=== PATIENT | female | born 1955 | race Caucasian/White ===

== ENCOUNTER → 2017-07-14 | Outpatient (CLI) | payer BC ==
--- NOTE | 2017-07-14 10:15 | WWHP ---
[facility] - HISTORY AND PHYSICAL DATE OF SERVICE: 07/14/2017 CHIEF COMPLAINT: The patient is here for her routine gynecologic exam and mammogram. HPI: This is a 62-year-old G4, P-1-0-3-1 with an LMP of 2008. The patient is without gynecologic complaints and denies any postmenopausal bleeding. PAST MEDICAL HISTORY: Elevated cholesterol. MEDICATIONS: 1. Lipitor 20 mg daily. 2. Vitamin D 1000 units daily. ALLERGIES: Allergies to AUGMENTIN. PAST SURGICAL HISTORY: Colonoscopies in 2007 and 2014, three laparoscopies between 1984 in 1989, right knee surgery 1978 and right foot surgery 1988. 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 SOCIAL HISTORY: She denies tobacco and drug use and has about 2 alcohol containing drinks per month. She has been since 2013 and this is her third marriage. 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 FAMILY HISTORY: Mother had colon cancer and diabetes. Father had heart disease. Sister had precancerous colon polyps. Maternal aunt had breast cancer. REVIEW OF SYSTEMS: Weight has been stable. She denies respiratory, cardiac or GI problems. PHYSICAL EXAM: Blood pressure 128/76, height 5 feet 2 inches, weight 163 pounds, BMI 30, temperature 98.1, pulse 94. This is a well-developed, well-nourished, white female, who is alert and oriented x3, in no acute distress. HEENT is within normal limits. NECK: Supple without mass or thyromegaly. CHEST AND LUNGS: Clear to auscultation. HEART: Regular rate and rhythm. Breasts are without mass or discharge. Axillary exam is negative for adenopathy. BACK: Negative for CVA tenderness. ABDOMEN: Soft, nontender, without palpable masses. PELVIC EXAM: Normal external genitalia with minimal atrophy. Cervix and vagina reveal minimal atrophy without lesions. There is no evidence of prolapse. The uterus is mid position, nongravid size and nontender. There are no palpable adnexal masses or tenderness. Rectovaginal exam is negative for mass or tenderness and is negative for occult blood. EXTREMITIES: Nontender. IMPRESSION: A 62-year-old menopausal female with normal gynecologic exam. PLAN: 1. Pap smear was performed. 2. Self-breast examination was discussed. 3. Mammogram will be done today. 4. Osteoporosis prevention was discussed. I have recommended bone density screening. She does have an order slip for this. 5. She will return in one year. MMODL / IJN: [id number] /
--- NOTE | 2017-07-15 10:51 | MM ---
Reason for exam: screening (asymptomatic). Last mammogram was performed 1 year and 1 month ago. History: Patient is postmenopausal. Family history of breast cancer in maternal aunt. Physical Findings: A clinical breast exam by your physician is recommended on an annual basis and results should be correlated with mammographic findings. MG 3D Screening Mammo W/Cad Bilateral CC and MLO view(s) were taken. Prior study comparison: June 10, 2016, bilateral MG 3d screening mammo w/cad. June 05, 2015, bilateral MG 3d screening mammo w/cad. There are scattered fibroglandular densities. No significant changes when compared with prior studies. ASSESSMENT: Benign, BI-RAD 2 RECOMMENDATION: Routine screening mammogram of both breasts in 1 year.
== END | disposition home or self-care (01) ==
LOC: WWCWWP 07:58
PROVIDERS: ATTEND Obstetrics & Gynecology
DX: Z12.31 Encounter for screening mammogram for malignant neoplasm of breast (principal)
CPT/HCPCS: 77063; 77067

== ENCOUNTER → 2018-03-19 | Outpatient (CLI) | payer OTHER ==
[2018-03-19 07:46] LABS: Basophils % (A) 0 %; Eosinophils # (A) 0.1 k/uL (0-0.7); Eosinophils % (A) 2 %; HCT 43.8 % (34.0-46.0); HGB 14.1 gm/dL (11.4-16.0); Lymphocytes # (A) 1.1 k/uL (1.0-4.8); Lymphocytes % (A) 28 %; MCH 30.3 pg (25.0-35.0); MCHC 32.3 g/dL (31.0-37.0); MCV 93.8 fL (80.0-100.0); Mean Platelet Volume 7.5; Monocytes # (A) 0.3 k/uL (0-1.0); Monocytes % (A) 9 %; Neutrophils # (A) 2.2 k/uL (1.3-7.7); Neutrophils % (A) 58 %; Platelet Count 156 k/uL (150-450); RBC 4.67 m/uL (3.80-5.40); RDW 12.7 % (11.5-15.5); WBC 3.8 k/uL (3.8-10.6)
[2018-03-19 08:05] LABS: ALT 27 U/L (9-52); AST 28 U/L (14-36); Albumin 4.1 g/dL (3.5-5.0); Alkaline Phosphatase 87 U/L (38-126); Anion Gap 8 mmol/L; Blood Urea Nitrogen 19 mg/dL (7-17); Calcium 9.2 mg/dL (8.4-10.2); Carbon Dioxide 26 mmol/L (22-30); Chloride 108 mmol/L (98-107); Cholesterol 280 mg/dL (<200); Glucose 85 mg/dL (74-99); HDL Cholesterol 43 mg/dL (40-60); LDL Cholesterol,Calculated 210 mg/dL (0-99); Potassium 4.6 mmol/L (3.5-5.1); Sodium 142 mmol/L (137-145); Total Bilirubin 0.6 mg/dL (0.2-1.3); Total Protein 7.7 g/dL (6.3-8.2); Triglycerides 137 mg/dL (<150)
[2018-03-19 08:19] LABS: T4, Free (Free Thyroxine) 1.11 ng/dL (0.78-2.19)
== END ==
LOC: LABWHC1 06:55
PROVIDERS: ATTEND Family Medicine
DX: Z00.00 Encounter for general adult medical examination without abnormal findings (principal); E78.5 Hyperlipidemia, unspecified; Z79.899 Other long term (current) drug therapy
CPT/HCPCS: 36415; 80053; 80061; 84439; 84443; 85025

== ENCOUNTER → 2019-01-10 | Outpatient (CLI) | payer OTHER ==
[2019-01-10 07:42] LABS: Basophils % (A) 1 %; Eosinophils # (A) 0.1 k/uL (0-0.7); Eosinophils % (A) 2 %; HCT 42.2 % (34.0-46.0); HGB 13.9 gm/dL (11.4-16.0); Lymphocytes # (A) 1.1 k/uL (1.0-4.8); Lymphocytes % (A) 28 %; MCH 29.8 pg (25.0-35.0); MCV 90.3 fL (80.0-100.0); Mean Platelet Volume 8.1; Monocytes # (A) 0.3 k/uL (0-1.0); Monocytes % (A) 8 %; Neutrophils # (A) 2.2 k/uL (1.3-7.7); Neutrophils % (A) 58 %; Platelet Count 166 k/uL (150-450); RBC 4.67 m/uL (3.80-5.40); RDW 13.7 % (11.5-15.5); WBC 3.8 k/uL (3.8-10.6)
[2019-01-10 12:26] LABS: African American GFR (CKD) 79.4 (60.0-200.0); Albumin 4.2 g/dL (3.80-4.90); Albumin/Globulin Ratio 1.62 (1.60-3.17); Anion Gap 6.4 mmol/L (4.00-12.00); BUN/Creat Ratio 24.44 Ratio (12.00-20.00); Calcium 9.2 mg/dL (8.7-10.3); Carbon Dioxide 29.6 mmol/L (21.6-31.8); Globulin 2.6 g/dL (1.6-3.3); LDL Cholesterol,Calculated 159.2 mg/dL (0.0-131.0); Potassium 5.3 mmol/L (3.5-5.5); Total Bilirubin 0.5 mg/dL (0.2-1.2); Total Protein 6.8 g/dL (6.2-8.2); VLDL Calculation 23.8 mg/dL (5.00-40.00)
[2019-01-10 15:03] LABS: Hepatitis C IgG Antibody Non-Reactive (Non-Reactive)
== END | disposition home or self-care (01) ==
LOC: LABWHC1 06:32
PROVIDERS: ATTEND Family Medicine
DX: E78.2 Mixed hyperlipidemia (principal); Z11.59 Encounter for screening for other viral diseases
CPT/HCPCS: 36415; 80053; 80061; 82550; 85025; 86141; 86803

== ENCOUNTER → 2020-03-13 | Outpatient (CLI) | payer OTHER ==
[2020-03-13 11:31] VITALS: BP 130/81; PULSE 79; RESP 18; TEMP 98.1
--- NOTE | 2020-03-13 12:02 | P.HPOB ---
History of Present Illness H&P Date: 03/13/20 Chief Complaint: The patient is here for her routine gynecologic exam and ma mmogram. This is a 64-year-old with an LMP of 2008. The patient is without gynecologic complaints and denies any postmenopausal bleeding. Review of Systems The patient's weight has been stable over the last 2 years. She is trying to lose weight with a Mediterranean diet. She denies respiratory, cardiac, or G.I. problems. 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 History of Any Multi-Drug Resistant Organisms: None Reported Past Surgical History: Orthopedic Surgery Additional Past Surgical History / Comment(s): 3 laparoscopies, right knee surgery and right foot surgery. Colonoscopy 2014(next after 5yr) Past Psychological History: No Psychological Hx Reported Smoking Status: Former smoker Past Alcohol Use History: Occasional (2 per month) Past Drug Use History: None Reported Additional History: She has been since 2013 and this is her third marriage. 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 - Past Family History Mother Family Medical History: Cancer, Diabetes Mellitus Additional Family Medical History / Comment(s): Colon cancer. Maternal aunt had breast cancer. Father Additional Family Medical History / Comment(s): Heart disease. Sister(s) Additional Family Medical History / Comment(s): Precancerous colon polyps. Medications and Allergies Home Medications Medication Instructions Recorded Confirmed Type Atorvastatin Calcium [Lipitor] 20 mg PO HS 03/13/20 03/13/20 History Allergies Allergy/AdvReac Type Severity Reaction Status Date / Time amoxicillin [From Augmentin] Allergy Vomiting Unverified 03/13/20 11:24 clavulanic acid Allergy Vomiting Unverified 03/13/20 11:24 [From Augmentin] Exam Vital Signs Temp Pulse Resp BP Pulse Ox 03/13/20 11:24 98.1 F 79 18 130/81 96 Intake and Output 03/12/20 03/13/20 03/13/20 22:59 06:59 14:59 Other: Weight 72.575 kg Height 5 feet 2 inches, weight 160 pounds, BMI 29.3. This is a well-developed well-nourished white female who is alert and oriented times 3 in no acute distress. HEENT: Within normal limits. NECK: Supple without mass or thyromegaly. CHEST AND LUNGS: Clear to auscultation. HEART: Regular rate and rhythm. BREASTS: Are without mass or discharge. AXILLARY EXAM: Negative for adenopathy. BACK: Negative for CVA tenderness. ABDOMEN: Soft, nontender, without palpable masses. PELVIC EXAM: Normal external genitalia with mild atrophy. Cervix and vagina appear normal mild atrophy. There is no unusual discharge. There is no evidence of prolapse. The uterus is midposition, nongravid size and nontender. There are no palpable adnexal masses or tenderness. RECTAL EXAM: Rectovaginal exam is negative for mass or tenderness and is negative for occult blood. EXTREMITIES: Nontender. IMPRESSION: 1. 64-year-old menopausal female with normal gynecologic exam. PLAN: 1. Pap smear was performed. 2. Self breast awareness was discussed with the patient. 3. Screening mammogram will be done today. 4. Osteoporosis prevention was discussed. I have stressed the importance of adequate calcium, vitamin D and regular exercise. Recommended amounts of calcium and vitamin D were also discussed. I have recommended a baseline screening bone density test since she has never had this done. The order slip was given to the patient for this. 5. She states she is due for her colonoscopy and will ask her PCP to help her to arrange this. 6. She was advised to return in one year for her annual well woman exam.
--- NOTE | 2020-03-15 14:24 | MM ---
Reason for exam: screening (asymptomatic). Last mammogram was performed 2 years and 8 months ago. History: Patient is postmenopausal. Family history of breast cancer in maternal aunt. Physical Findings: A clinical breast exam by your physician is recommended on an annual basis and results should be correlated with mammographic findings. MG 3D Screening Mammo W/Cad Bilateral CC and MLO view(s) were taken. Prior study comparison: July 14, 2017, bilateral MG 3d screening mammo w/cad. June 10, 2016, bilateral MG 3d screening mammo w/cad. There are scattered fibroglandular densities. Focal asymmetry left CC, not clearly evident on tomosynthesis. This finding is changed when compared with previous exams. ASSESSMENT: Incomplete: need additional imaging evaluation, BI-RAD 0 RECOMMENDATION: Special view mammogram of the left breast. If lesion persists on supplemental views, image directed ultrasound is recommended. [facility] will attempt to contact patient to return for supplemental views and ultrasound if indicated.
== END | disposition home or self-care (01) ==
LOC: WWCWWP 11:16
PROVIDERS: ATTEND Obstetrics & Gynecology
DX: Z12.31 Encounter for screening mammogram for malignant neoplasm of breast (principal)
CPT/HCPCS: 77063; 77067

== ENCOUNTER → 2020-04-02 | Outpatient (CLI) | payer OTHER ==
--- NOTE | 2020-04-03 07:51 | MM ---
Reason for exam: additional evaluation requested from abnormal screening. Last mammogram was performed 1 month ago. History: Patient is postmenopausal. Family history of breast cancer in maternal aunt. Physical Findings: Nurse Summary: 1cm nodule in the right breast at 12 o'clock (nurse mj). MG 3D Work Up W/Cad LT Spot compression CC and LM view(s) were taken of the left breast. Prior study comparison: March 13, 2020, bilateral MG 3d screening mammo w/cad. July 14, 2017, bilateral MG 3d screening mammo w/cad. Finding: There is a 5 mm equal density (isodense), irregular mass in the posterior, central position of the left breast. These results were verbally communicated with the patient and result sheet given to the patient on 04/02/20. ASSESSMENT: Incomplete: need additional imaging evaluation, BI-RAD 0 RECOMMENDATION: Ultrasound of both breasts.
--- NOTE | 2020-04-03 07:58 | USB ---
Reason for exam: additional evaluation requested from abnormal screening. History: Patient is postmenopausal. Family history of breast cancer in maternal aunt. US Breast Workup Limited LUCA Left limited breast ultrasound including focal area of concern, retroareolar and axilla demonstrates no cystic or solid lesion seen. Left complete breast ultrasound includes all four quadrants, the retroareolar region and axilla. Finding demonstrates a 4 x 3 x 3mm oval, cystic lesion at 12 o'clock. These results were verbally communicated with the patient and result sheet given to the patient on 04/02/20. ASSESSMENT: Suspicious, BI-RAD 4 RECOMMENDATION: Stereotactic core biopsy of the left breast. Called Dr. Browne's office with mammographic findings and has scheduled an appointment for the patient for 05/02/20 at 4:[address] Aleman. Biopsy scheduled for 04/11/20 at 8:00. PRELIMINARY REPORT CALLED AND FAXED TO DR. ALEMAN ON 04/03/20.
== END | disposition home or self-care (01) ==
LOC: RADMAMWWP 13:33
PROVIDERS: ATTEND Obstetrics & Gynecology
DX: R92.8 Other abnormal and inconclusive findings on diagnostic imaging of breast (principal)
CPT/HCPCS: 77061; 77065

== ENCOUNTER → 2020-04-11 | Day surgery (SDC) | payer OTHER ==
[2020-04-11 07:25] VITALS: RESP 16
[2020-04-11 09:07] VITALS: BP 125/78; PULSE 84; TEMP 98.2
--- NOTE | 2020-04-11 09:46 | MM ---
Stereotactic Mammotome core biopsy left breast. HISTORY: Abnormal mammogram The density in question within the left breast were targeted by the undersigned. Procedure was performed by the undersigned. Informed consent was obtained and all of the patients questions were answered. The standard sterile technique was utilized and appropriate local anesthesia was obtained with 1% lidocaine. Mammotome probe was advanced and multiple core samples were obtained and sent to pathology for interpretation. Microclip marker was deployed at the site of biopsy. Post procedural mammogram demonstrates appropriate deployment of radiopaque clip marker. The patient tolerated the procedure well and left the department in stable condition. Pathology results are pending. IMPRESSION: Successful stereotactic core biopsy left breast with pathology results pending. Pathology Results: Benign LEFT BREAST, NEEDLE CORE BIOPSIES: Fibrocystic spectrum lesions with duct hyperplasia and squamous metaplasia. Negative for features diagnostic of neoplasm. Recommendation Follow up mammogram of the left breast in 6 months. NOAM
== END ==
LOC: RADMAMWWP 07:01
PROVIDERS: ATTEND Surgery
DX: N60.12 Diffuse cystic mastopathy of left breast (principal); Z88.0 Allergy status to penicillin; Z80.9 Family history of malignant neoplasm, unspecified
CPT/HCPCS: 88305; 19081; A4648; J2001

== ENCOUNTER → 2020-11-07 | Outpatient (CLI) | payer OTHER ==
--- NOTE | 2020-11-07 10:30 | MM ---
Reason for exam: follow-up at short interval from prior study. Last mammogram was performed 7 months ago. History: Patient is postmenopausal. Family history of breast cancer in maternal aunt. Benign MG stereo VAD BX LT of the left breast, April 11, 2020. Physical Findings: Nurse did not find any significant physical abnormalities on exam. MG 3D Diag Mammo W/Cad LT CC and MLO view(s) were taken of the left breast. Prior study comparison: April 02, 2020, left breast MG 3d work up w/cad LT. March 13, 2020, bilateral MG 3d screening mammo w/cad. The breast tissue is heterogeneously dense. This may lower the sensitivity of mammography. Previous mammotome biopsy in the left breast. There is no discrete abnormality including area of concern. These results were verbally communicated with the patient and result sheet given to the patient on 11/07/20. ASSESSMENT: Benign, BI-RAD 2 RECOMMENDATION: Return to routine screening mammogram schedule for both breasts.
== END | disposition home or self-care (01) ==
LOC: RADMAMWWP 09:43
PROVIDERS: ATTEND Surgery
DX: R92.2 Inconclusive mammogram (principal); Z80.3 Family history of malignant neoplasm of breast; Z78.0 Asymptomatic menopausal state
CPT/HCPCS: 77061; 77065

== ENCOUNTER → 2021-12-17 | Outpatient (CLI) | payer OTHER ==
[2021-12-17 14:21] VITALS: BP 139/70; PULSE 84; RESP 17; TEMP 98.5
--- NOTE | 2021-12-17 14:57 | P.HPOB ---
History of Present Illness H&P Date: 12/17/21 Chief Complaint: The patient is here for her routine gynecologic exam and ma mmogram. This is a 66-year-old 031 with an LMP of 2008. The patient is without gynecologic complaints. Review of Systems The patient's weight has been stable over the last year. She denies respiratory, cardiac, or G.I. problems. 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 History of Any Multi-Drug Resistant Organisms: None Reported Past Surgical History: Orthopedic Surgery Additional Past Surgical History / Comment(s): 3 laparoscopies, right knee surgery and right foot surgery. Colonoscopy 2014(next after 5yr) Past Anesthesia/Blood Transfusion Reactions: No Reported Reaction Past Psychological History: No Psychological Hx Reported Smoking Status: Former smoker Past Alcohol Use History: Occasional (1 per month) Additional Past Alcohol Use History / Comment(s): Smoked only as a teenager. Past Drug Use History: None Reported Additional History: She has been since 2013 and this is her third marriage. 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 - Past Family History Mother Family Medical History: Cancer, Diabetes Mellitus Additional Family Medical History / Comment(s): Colon cancer. Maternal aunt had breast cancer. Father Additional Family Medical History / Comment(s): Heart disease. Sister(s) Additional Family Medical History / Comment(s): Precancerous colon polyps. Medications and Allergies Home Medications Medication Instructions Recorded Confirmed Type Atorvastatin Calcium [Lipitor] 20 mg PO HS 03/13/20 12/17/21 History Allergies Allergy/AdvReac Type Severity Reaction Status Date / Time amoxicillin [From Augmentin] Allergy Vomiting Verified 12/17/21 14:16 clavulanic acid Allergy Vomiting Verified 12/17/21 14:16 [From Augmentin] Exam Vital Signs Temp Pulse Resp BP Pulse Ox 12/17/21 14:19 98.5 F 84 17 139/70 97 Intake and Output 12/16/21 12/17/21 12/17/21 22:59 06:59 14:59 Other: Weight 72.121 kg Height 5 feet 2 inches, weight 159 pounds, BMI 29.1. This is a well-developed well-nourished white female who is alert and oriented times 3 in no acute distress. HEENT: Within normal limits. NECK: Supple without mass or thyromegaly. CHEST AND LUNGS: Clear to auscultation. HEART: Regular rate and rhythm. BREASTS: Are without mass or discharge. AXILLARY EXAM: Negative for adenopathy. BACK: Negative for CVA tenderness. ABDOMEN: Soft, nontender, without palpable masses. PELVIC EXAM: Normal external genitalia if mild atrophy. Cervix and vagina appear normal with mild atrophy. There is no unusual discharge. There is a grade 1-2 uterine prolapse and grade 1-2 cystocele noted. The uterus is midposition, nongravid size and nontender. There are no palpable adnexal masses or tenderness. RECTAL EXAM: Rectovaginal exam is negative for mass or tenderness and is negative for occult blood. EXTREMITIES: Nontender. IMPRESSION: 1. 66-year-old menopausal female with grade 1-2 uterine prolapse and grade 1-2 cystocele. These are asymptomatic. PLAN: 1. Pap smear was deferred since she had a normal one on 03/13/2020. This will be repeated in 1 year and if that is negative, Pap smears will be discontinued. 2. Self breast awareness was discussed with the patient. We have also discussed symptoms associated with inflammatory breast cancer. 3. Screening mammogram will be done today. 4. Osteoporosis prevention was discussed. I have recommended baseline bone density testing. She states she has an order slip for this. 5. She is due for a colonoscopy and plans to see Dr. Aleman for this. 6. She has completed her Covid vaccination series and did receive a booster. 7. We have discussed the slight uterine prolapse and cystocele. I have recommended that she avoid heavy repetitive lifting and avoid holding urine for excessive amounts of time. 8. She was advised to return in one year for her annual well woman exam and as needed.
--- NOTE | 2021-12-18 08:44 | MM ---
Reason for Exam: Screening (asymptomatic). Last mammogram was performed 1 year(s) and 9 month(s) ago. Patient History: Menarche at age 13. First Full-Term at age 30. Postmenopausal. 04/11/2020, Benign Core Biopsy on the left side. Maternal aunt had breast cancer, age 60. Risk Values: Taryn 5 year model risk: 2.2%. NCI Lifetime model risk: 8.2%. Prior Study Comparison: 03/13/2020 Bilateral Screening Mammogram, [facility]. 04/02/2020 Left Diagnostic Mammogram, [facility]. 11/07/2020 Left Diagnostic Mammogram, [facility]. Tissue Density: There are scattered fibroglandular densities. Findings: Analyzed By CAD. No suspicious groups of microcalcifications, spiculated or lobular masses, architectural distortion or other secondary signs of malignancy are mammographically apparent. Overall Assessment: Benign, BI-RAD 2 Management: Screening Mammogram of both breasts in 1 year. A negative mammogram report should not preclude additional follow up of suspicious palpable abnormalities. Patient should continue monthly self breast exam. A clinical breast exam by your physician is recommended on an annual basis and results should be correlated with mammographic findings. Electronically signed and approved by: Corwin Gutierrez D.O. Radiologis
== END ==
LOC: WWCWWP 14:14
PROVIDERS: ATTEND Obstetrics & Gynecology
DX: Z12.31 Encounter for screening mammogram for malignant neoplasm of breast (principal); Z01.419 Encounter for gynecological examination (general) (routine) without abnormal findings; E78.5 Hyperlipidemia, unspecified; Z87.891 Personal history of nicotine dependence; Z88.1 Allergy status to other antibiotic agents; Z78.0 Asymptomatic menopausal state; Z80.3 Family history of malignant neoplasm of breast
CPT/HCPCS: 77063; 77067

== ENCOUNTER → 2022-12-03 | Outpatient (CLI) | payer BC ==
--- NOTE | 2022-12-03 08:00 | BD ---
EXAMINATION TYPE: Axial Bone Density DATE OF EXAM: 12/03/2022 CLINICAL HISTORY: 67 years old Female. ICD-10 CODE: Z78.0 Height: 61.7 in Weight: 152 lbs RISK FACTORS HISTORY OF: Active: yes Diet low in dairy products/other sources of calcium: yes Postmenopausal woman: age 53 MEDICATIONS: none EXAM MEASUREMENTS: Bone mineral densitometry was performed using the [employer] System. Bone mineral density as measured about the Lumbar spine is: ----- L1-L4(G/cm2): 0.952 T Score Values are as follows: ----- L1: -3.3 ----- L2: -2.6 ----- L3: -0.6 ----- L4: -1.7 ----- L1-L4: -1.9 Z Score Values are as follows: ----- L1: -1.8 ----- L2: -1.2 ----- L3: 0.9 ----- L4: -0.2 ----- L1-L4: -0.4 Bone mineral density baseline Bone mineral density about the R hip (g/cm2): 0.859 Bone mineral density about the L hip (g/cm2): 0.830 T Score values are as follows: -----R Neck: -1.6 -----L Neck: -1.6 -----R Total: -1.2 -----L Total: -1.4 Z Score values are as follows: -----R Neck: -0.2 -----L Neck: -0.2 -----R Total: -0.2 -----L Total: 0.0 Bone mineral density baseline FRAX%s: The graph provided illustrates a 9.6% chance for a major osteoporotic fx and a 1.2% chance fo r the hips probability for fx in 10 years time. IMPRESSION: Osteopenia (T Score between -2.5 and -1). There is slightly increased risk of fracture and the patient may be considered for treatment. Re-Screen 2-5 years. NOTE: T-SCORE=SD OF THE YOUNG ADULT MEAN.
== END | disposition home or self-care (01) ==
LOC: RADBDWWP 07:17
PROVIDERS: ATTEND Family Medicine
DX: M85.89 Other specified disorders of bone density and structure, multiple sites (principal); Z78.0 Asymptomatic menopausal state
CPT/HCPCS: 77080

== ENCOUNTER → 2023-03-13 | Outpatient (CLI) | payer MEDICARE ==
[2023-03-13 16:09] LABS: Chol/HDL Ratio 3.29 Ratio; Creatine Kinase 65 U/L (26-186); LDL Cholesterol,Calculated 95.6 mg/dL (0.0-131.0)
[2023-03-13 16:10] LABS: ALT 24 U/L (8-44); AST 28 U/L (13-35)
[2023-03-13 21:06] LABS: Basophils # (A) 0.04 X 10*3/uL (0.00-0.10); Basophils % (A) 0.9 %; Eosinophils # (A) 0.08 X 10*3/uL (0.04-0.35); Eosinophils % (A) 1.7 %; HCT 43.8 % (37.2-46.3); HGB 14.5 d/dL (12.0-15.0); Lymphocytes # (A) 1.27 X 10*3/uL (0.90-5.00); Lymphocytes % (A) 27.1 %; MCH 30.9 pg (27.0-32.0); MCHC 33.1 d/dL (32.0-37.0); MCV 93.4 FL (80.0-97.0); Mean Platelet Volume 12.3 FL (9.5-12.2); Monocytes % (A) 10.7 %; NRBC Per 100 WBC 0 X 10*3/uL (0.00-0.01); Neutrophils # (A) 2.78 X 10*3/uL (1.80-7.70); Neutrophils % (A) 59.2 %; Platelet Count 170 X 10*3/uL (140-440); RBC 4.69 X 10*6/uL (4.10-5.20); RDW 12.6 % (11.5-14.5); WBC 4.69 X 10*3/uL (4.50-10.00)
== END | disposition home or self-care (01) ==
LOC: LABWHC1 09:33
PROVIDERS: ATTEND Family Medicine
DX: E78.00 Pure hypercholesterolemia, unspecified (principal); D72.819 Decreased white blood cell count, unspecified
CPT/HCPCS: 36415; 80061; 82550; 84450; 84460; 85025

== ENCOUNTER → 2023-07-21 | Outpatient (CLI) | payer MEDICARE ==
[2023-07-21 12:56] VITALS: BP 144/76; PULSE 90; RESP 17; TEMP 98.4
--- NOTE | 2023-07-21 13:24 | P.HPOB ---
History of Present Illness H&P Date: 07/21/23 Chief Complaint: The patient is here for her routine gynecologic exam and ma mmogram. This is a 68-year-old 031 with an LMP of 2008. The patient is without gynecologic complaints. She denies any significant symptoms from her vaginal prolapse. She has a known small cystocele and uterine prolapse. Review of Systems The patient has gained pounds over the last year. She denies respiratory, cardiac, or G.I. problems. She had a bout of colitis about 2 months ago and she now avoids certain foods. 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 History of Any Multi-Drug Resistant Organisms: None Reported Past Surgical History: Orthopedic Surgery Additional Past Surgical History / Comment(s): 3 laparoscopies, right knee surgery and right foot surgery. Colonoscopy 2014(next after 5yr) Past Anesthesia/Blood Transfusion Reactions: No Reported Reaction Past Psychological History: No Psychological Hx Reported (PHQ-2 questionaire was given and she scores 0. This is a negative screen for depression.) Smoking Status: Former smoker Past Alcohol Use History: Occasional (About 1 drink per month.) Additional Past Alcohol Use History / Comment(s): Smoked only as a teenager. Past Drug Use History: None Reported Additional History: She has been since 2013 and this is her third marriage. 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 - Past Family History Mother Family Medical History: Cancer, Diabetes Mellitus Additional Family Medical History / Comment(s): Colon cancer. Maternal aunt had breast cancer. Father Additional Family Medical History / Comment(s): Heart disease. Sister(s) Additional Family Medical History / Comment(s): Precancerous colon polyps. Medications and Allergies Home Medications Medication Instructions Recorded Confirmed Type Simvastatin [Zocor] 10 mg PO DAILY 07/21/23 07/21/23 History Allergies Allergy/AdvReac Type Severity Reaction Status Date / Time amoxicillin [From Augmentin] Allergy Vomiting Verified 07/21/23 12:41 clavulanic acid Allergy Vomiting Verified 07/21/23 12:41 [From Augmentin] Exam Vital Signs Temp Pulse Resp BP Pulse Ox 07/21/23 12:43 98.4 F 90 17 144/76 99 Intake and Output 07/20/23 07/21/23 07/21/23 22:59 06:59 14:59 Other: Weight 73.482 kg Height 5 feet 2 inches, weight 162 pounds, BMI 29.6. This is a well-developed well-nourished white female who is alert and oriented times 3 in no acute distress. HEENT: Within normal limits. NECK: Supple without mass or thyromegaly. CHEST AND LUNGS: Clear to auscultation. HEART: Regular rate and rhythm. BREASTS: Are without mass or discharge. AXILLARY EXAM: Negative for adenopathy. BACK: Negative for CVA tenderness. ABDOMEN: Soft, nontender, without palpable masses. PELVIC EXAM: Normal external genitalia with mild atrophy. Cervix and vagina appear normal with mild atrophy. There is no unusual discharge. There is a grade 2 cystocele with a grade 1-2 uterine prolapse and grade 1-2 rectocele. The vaginal mucosa is without ulceration, excoriation, or thickening. The uterus is midposition, nongravid size and nontender. There are no palpable adnexal masses or tenderness. RECTAL EXAM: Rectovaginal exam is negative for mass or tenderness and is negative for occult blood. EXTREMITIES: Nontender. IMPRESSION: 1. 68-year-old menopausal female with asymptomatic grade 2 cystocele, grade 1-2 uterine prolapse, and grade 1-2 rectocele. 2. History of osteopenia. PLAN: 1. Pap smear was performed. If this is negative for all plan on discontinuing Pap smears. 2. Self breast awareness was discussed with the patient. We have also discussed symptoms associated with inflammatory breast cancer. 3. Screening mammogram will be done today. 4. PHQ-2 questionaire was given and she scores 0. This is a negative screen for depression. 5. Osteoporosis prevention was discussed. I have stressed the importance of adequate calcium, vitamin D and regular exercise. Recommended amounts of calcium and vitamin D were also discussed. Her last bone density test was done on 12/03/2022. We will plan on repeating the bone density test in about 2 years. 6. She is scheduled for a colonoscopy on 09/09/[address] Neptali Aleman. 7. We will continue conservative management for her pelvic relaxation. She was instructed to call if she is having any significant symptoms related to this. 8. She was advised to return in one year for her annual well woman exam and as needed.
--- NOTE | 2023-07-22 09:27 | MM ---
Reason for Exam: Screening (asymptomatic). Last mammogram was performed 1 year(s) and 7 month(s) ago. Patient History: Menarche at age 13. First Full-Term at age 30. Postmenopausal. 04/11/2020, Benign Core Biopsy on the left side. Maternal aunt had breast cancer, age 60. Risk Values: Taryn 5 year model risk: 2.2%. NCI Lifetime model risk: 7.6%. Prior Study Comparison: 06/10/2016 Bilateral Screening Mammogram, [facility]. 07/14/2017 Bilateral Screening Mammogram, [facility] 03/13/2020 Bilateral Screening Mammogram, [facility]. 04/02/2020 Left Diagnostic Mammogram, [facility]. 11/07/2020 Left Diagnostic Mammogram, [facility]. 12/17/2021 Bilateral MG 3D screening mammo w/cad, [facility]. Tissue Density: The breast tissue is almost entirely fat. Findings: Analyzed By CAD. Left breast biopsy clip. There is no suspicious group of microcalcifications or new suspicious mass. Benign-appearing calcifications bilaterally. Overall Assessment: Benign, BI-RAD 2 Management: Screening Mammogram of both breasts in [address] [facility] will attempt to contact patient to return for supplemental views and ultrasound if indicated. Patient should continue monthly self-breast exams. A clinical breast exam by your physician is recommended on an annual basis. This exam should not preclude additional follow-up of suspicious palpable abnormalities. Note on Taryn scores and lifetime risk: 1. A Taryn score greater than 3% is considered moderate risk. If this is the case, consider specialist referral to assess eligibility for a risk reducing agent. 2. If overall lifetime risk for the development of breast cancer is 20% or higher, the patient may qualify for future screening with alternating mammogram and breast MRI. Electronically signed and approved by: Uriel Brenner DO
== END ==
LOC: WWCWWP 12:30
PROVIDERS: ATTEND Obstetrics & Gynecology
DX: Z12.31 Encounter for screening mammogram for malignant neoplasm of breast (principal); M85.80 Other specified disorders of bone density and structure, unspecified site; E78.5 Hyperlipidemia, unspecified; N81.4 Uterovaginal prolapse, unspecified; Z78.0 Asymptomatic menopausal state; Z88.0 Allergy status to penicillin; Z88.8 Allergy status to other drugs, medicaments and biological substances; Z80.3 Family history of malignant neoplasm of breast; Z88.1 Allergy status to other antibiotic agents; Z87.891 Personal history of nicotine dependence
CPT/HCPCS: 77063; 77067

== ENCOUNTER → 2024-12-14 | Outpatient (CLI) | payer MEDICARE ==
[2024-12-14 11:50] VITALS: BP 135/80; PULSE 85; RESP 16; TEMP 97.9
--- NOTE | 2024-12-14 12:17 | P.HPOB ---
History of Present Illness H&P Date: 12/14/24 Chief Complaint: The patient is here for her routine gynecologic exam and ma mmogram. This is a 69 year old with an LMP of 2009. She is without gynecologic complaints and denies any problems with vaginal prolapse. Review of Systems Her weight has been stable. She denies respiratory, cardiac or GI problems. Past Medical History Past Medical History: Hyperlipidemia Additional Past Medical History / Comment(s): PAST [employer]ED [employer] HISTORY: She has no history of STDs. History of Any Multi-Drug Resistant Organisms: None Reported Past Surgical History: Orthopedic Surgery Additional Past Surgical History / Comment(s): 3 laparoscopies, right knee surgery and right foot surgery. Colonoscopy 2014(next after 5yr) Past Anesthesia/Blood Transfusion Reactions: No Reported Reaction Past Psychological History: No Psychological Hx Reported Smoking Status: Former smoker Past Alcohol Use History: Occasional (On drink per week.) Additional Past Alcohol Use History / Comment(s): Smoked only as a teenager. Past Drug Use History: None Reported Additional History: She has been since 2013 and this is her 3rd marriage. She is retired. - Past Family History Mother Family Medical History: Cancer, Diabetes Mellitus Additional Family Medical History / Comment(s): Colon cancer. Maternal aunt had breast cancer. Father Additional Family Medical History / Comment(s): Heart disease. Sister(s) Additional Family Medical History / Comment(s): Precancerous colon polyps. Medications and Allergies Home Medications Medication Instructions Recorded Confirmed Type Cholecalciferol (Vitamin D3) 125 mg PO DAILY 12/14/24 12/14/24 History [Vitamin D3 (125 MCG = 5,000 IU)] Allergies Allergy/AdvReac Type Severity Reaction Status Date / Time amoxicillin [From Augmentin] Allergy Vomiting Verified 07/21/23 12:41 clavulanic acid Allergy Vomiting Verified 07/21/23 12:41 [From Augmentin] Exam Vital Signs Temp Pulse Resp BP Pulse Ox 12/14/24 11:45 97.9 F 85 16 135/80 98 Intake and Output 12/13/24 12/14/24 12/14/24 22:59 06:59 14:59 Other: Weight 73.482 kg Height 5'3", weight 162 pounds. BMI 28.7. This is a well developed, well nourished, white female who is A+Ox3. HEENT is WNL Neck: supple without mass or thyromegaly. Chest and lungs: CTA Heart: RRR Breasts are without mass or discharge. Abdomen: soft, NT without palpable mass. Pelvic: normal external genitalia with mild atrophy. Cervix and vagina appear normal with mild atrophy. The mucosa is without ulceration or excoriation. There is a stable . The uterus is non-gravid size and is NT. There are no palpable adnexal masses or tenderness. Rectovaginal exam is negative for mass or tenderness. Extremities: NT. Impression: 1. 69yo menopausal female with stable gr. 2 cystocele, gr.1-2 uterine prolapse, and gr. 1-2 rectocele. This is asymptomatic 2. History of osteopenia. Plan: 1.Paps have been discontinued. 2.Breast awareness was discussed. 3.Screening mammogram will be done today. 4.Osteoporosis prevention was discussed. An order slip was given to the patient to repeat the bone density testing. 5.She will return in one year and as needed.
--- NOTE | 2024-12-14 15:09 | MM ---
Reason for Exam: Screening (asymptomatic). Last mammogram was performed 1 year(s) and 5 month(s) ago. Patient History: Menarche at age 13. First Full-Term at age 30. Postmenopausal. 04/11/2020, Benign Core Biopsy on the left side. Maternal aunt had breast cancer, age 60. Risk Values: Taryn 5 year model risk: 2.2%. NCI Lifetime model risk: 7.2%. Prior Study Comparison: 11/07/2020 Left Diagnostic Mammogram, [facility]. 12/17/2021 Bilateral MG 3D screening mammo w/cad, [facility]. 07/21/2023 Bilateral MG 3D screening mammo w/cad, [facility]. Tissue Density: There are scattered areas of fibroglandular density. Findings: Analyzed By CAD. Microclip left breast from prior biopsy. A few benign oil cyst calcifications are again noted. There is no suspicious group of microcalcifications or new suspicious mass in either breast. Overall Assessment: Benign, BI-RAD 2 Management: Screening Mammogram of both breasts in 1 year. Patient should continue monthly self-breast exams. A clinical breast exam by your physician is recommended on an annual basis. This exam should not preclude additional follow-up of suspicious palpable abnormalities. Note on Taryn scores and lifetime risk: 1. A Taryn score greater than 3% is considered moderate risk. If this is the case, consider specialist referral to assess eligibility for a risk reducing agent. 2. If overall lifetime risk for the development of breast cancer is 20% or higher, the patient may qualify for future screening with alternating mammogram and breast MRI. [facility], , 12/14/2024 3:04 PM. Electronically signed and approved by: Wesley Capps M.D. Radiologist
== END ==
LOC: WWCWWP 11:18
PROVIDERS: ATTEND Obstetrics & Gynecology
DX: Z01.419 Encounter for gynecological examination (general) (routine) without abnormal findings (principal); Z12.31 Encounter for screening mammogram for malignant neoplasm of breast; N81.4 Uterovaginal prolapse, unspecified; M85.80 Other specified disorders of bone density and structure, unspecified site; Z78.0 Asymptomatic menopausal state; Z88.0 Allergy status to penicillin; Z88.1 Allergy status to other antibiotic agents; Z87.891 Personal history of nicotine dependence
CPT/HCPCS: 77063; 77067

== ENCOUNTER → 2025-01-23 | Outpatient (CLI) | payer MEDICARE ==
--- NOTE | 2025-01-23 12:41 | XR ---
EXAMINATION TYPE: XR abdomen 1V DATE OF EXAM: 01/23/2025 COMPARISON: [facility] radiograph 12/01/2014 HISTORY: R19.7 DIARRHEA TECHNIQUE: Single supine view of the abdomen is obtained FINDINGS: Small bowel demonstrates no evidence for dilatation or air fluid levels. Gas and fecal material is seen in non-distended colon. No convincing evidence for pneumoperitoneum. No unusual calcifications. The lung bases are clear. No acute osseous abnormality. Remote right lateral 10th rib fracture. IMPRESSION: Overall nonobstructive bowel gas pattern. [facility], , 01/23/2025 12:39 PM
[2025-01-23 15:15] LABS: HCT 42.9 % (37.2-46.3); HGB 14.2 g/dL (12.0-15.0); MCH 30.0 pg (27.0-32.0); MCHC 33.1 g/dL (32.0-37.0); MCV 90.7 FL (80.0-97.0); NRBC Per 100 WBC 0 X 10*3/uL (0.00-0.01); Platelet Count 202 X 10*3/uL (140-440); RBC 4.73 X 10*6/uL (4.10-5.20); RDW 12.4 % (11.5-14.5); WBC 6.65 X 10*3/uL (4.50-10.00)
[2025-01-23 15:16] LABS: Basophils # (A) 0.03 X 10*3/uL (0.00-0.10); Basophils % (A) 0.5 %; Eosinophils # (A) 0.05 X 10*3/uL (0.04-0.35); Eosinophils % (A) 0.8 %; Immature Grans, Automated 0.30 %; Lymphocytes # (A) 1.45 X 10*3/uL (0.90-5.00); Lymphocytes % (A) 21.8 %; Monocytes # (A) 0.84 X 10*3/uL (0.20-1.00); Monocytes % (A) 12.6 %; Neutrophils # (A) 4.26 X 10*3/uL (1.80-7.70); Neutrophils % (A) 64.0 %
[2025-01-23 16:02] LABS: ALT 24 U/L (8-44); AST 28 U/L (13-35); Albumin 4.4 g/dL (3.8-4.9); Albumin/Globulin Ratio 1.47 Ratio (1.60-3.17); Alkaline Phosphatase 88 U/L (41-126); Anion Gap 13.90 mmol/L (4.00-12.00); BUN/Creat Ratio 14.89 Ratio (12.00-20.00); Blood Urea Nitrogen 13.4 mg/dL (9.0-27.0); Calcium 9.2 mg/dL (8.7-10.3); Carbon Dioxide 22.1 mmol/L (21.6-31.8); Chloride 102 mmol/L (96-109); Globulin 3.0 g/dL (1.6-3.3); Glucose 82 mg/dL (70-110); Potassium 4.4 mmol/L (3.5-5.5); Sodium 138 mmol/L (135-145); Total Protein 7.4 g/dL (6.2-8.2)
== END | disposition home or self-care (01) ==
LOC: LABWHC1 11:56
PROVIDERS: ATTEND Family Medicine
DX: R19.7 Diarrhea, unspecified (principal)
CPT/HCPCS: 36415; 74018; 80053; 85025; 85652; 86140